=== PATIENT | male | born 1990 | race American Indian/Alaskan Native ===

== ENCOUNTER 2017-07-25 13:05 | Emergency (ER) | payer BC, OTHER ==
[2017-07-25 13:20] VITALS: BMI 27.2
[2017-07-25 13:22] VITALS: BP 122/78; PULSE 83; RESP 19; TEMP 98; O2SAT 100
[2017-07-25] MEDS ORDERED: cefTRIAXone (Rocephin) 250 mg Inj IM STA (13:54)
[2017-07-25] MEDS ORDERED: Lidocaine 1% Inj (20ml) ONE (14:01)
[2017-07-25 14:09] LABS: URINE BILIRUBIN NEGATIVE (NEGATIVE); URINE BLOOD NEGATIVE (NEGATIVE); URINE GLUCOSE (UA) NEGATIVE (NEGATIVE); URINE KETONE NEGATIVE (NEGATIVE); URINE LEUKOCYTE ESTERASE NEGATIVE Leu/uL (NEGATIVE); URINE PROTEIN NEGATIVE mg/dL (<30 mg/dL)
--- NOTE | 2017-07-25 14:09 | ED PDOC ---
Arrival/HPI - General Chief Complaint: Male Genitourinary Time Seen by Provider: 07/25/17 13:39 Historian: Patient - History of Present Illness Narrative History of Present Illness (Text): 07/25/17 17:31 26 yo M c/o white d/c since this AM, he was told this AM by his ex-girlfriend that she was Dx and Tx for gonorrhea and trichomonas. Denies any fever, chills, abdominal pain, N/V, back pain, dysuria, rash. Has no additional complaints. Past Medical History - Provider Review Nursing Documentation Reviewed: Yes - Infectious Disease Hx of Infectious Diseases: None - Psychiatric Hx Substance Use: No - Anesthesia Hx Anesthesia: No Family/Social History - Physician Review Nursing Documentation Reviewed: Yes Family/Social History: Unknown Family HX Smoking Status: Heavy Smoker > 10 Cigarettes Daily Hx Alcohol Use: Yes Frequency of alcohol use: Socially Hx Substance Use: No Allergies/Home Meds Allergies/Adverse Reactions: Allergies No Known Allergies Allergy (Verified 07/25/17 13:20) Home Medications: Home Meds Medication Instructions Recorded Confirmed No Known Home Med 07/25/17 07/25/17 Review of Systems - Review of Systems Constitutional: Normal. absent: Fatigue, Weight Change, Fevers Gastrointestinal: Normal, Other (+white urethral d/c). absent: Abdominal Pain, Constipation, Diarrhea, Vomiting Genitourinary Male: Normal, Other. absent: Dysuria, Frequency, Hematuria Musculoskeletal: Normal. absent: Arthralgias, Back Pain, Neck Pain Skin: Normal. absent: Rash, Pruritis, Skin Lesions Physical Exam Vital Signs Reviewed: Yes Vital Signs Temp Pulse Resp BP Pulse Ox 07/25/17 13:21 98.0 F 83 19 122/78 100 Temperature: Afebrile Blood Pressure: Normal Pulse: Regular Respiratory Rate: Normal Appearance: Positive for: Well-Appearing, Non-Toxic, Comfortable Pain Distress: None Mental Status: Positive for: Alert and Oriented X 3 - Systems Exam Neck: Present: Normal Range of Motion Respiratory/Chest: Present: Clear to Auscultation, Good Air Exchange. No: Respiratory Distress, Accessory Muscle Use, Wheezes, Rales, Rhonchi Cardiovascular: Present: Regular Rate and Rhythm, Normal S1, S2. No: Murmurs Abdomen: No: Tenderness, Rebound, Guarding Genitourinary Male: Present: Other (patient deferred) Back: Present: Normal Inspection. No: CVA Tenderness Upper Extremity: Present: Normal Inspection, Normal ROM Lower Extremity: Present: Normal Inspection, Normal ROM Neurological: Present: GCS=15, CN II-XII Intact Skin: Present: Warm, Dry, Normal Color. No: Rashes Medical Decision Making ED Course and Treatment: 07/25/17 17:34 26 yo M c/o white d/c since this AM, he was told this AM by his ex-girlfriend that she was Dx and Tx for gonorrhea and trichomonas. Plan : - UA - Urine cx - rocephin 250 mg IM - zithromax 1 g PO - flagyl 2g PO - Chlamydia and gonorrhea cx Patient was prophylactically treated for gonorrhea, chlamydia and trichomonas due to his recent exposure. Patient informed that he will be notified via phone call for any (+) results. Otherwise instructed to f/u with pmd or referral provided. Advised to refrain from any sexual activity for at least 2 week to ensure resolution of infection and instructed to have any recent partners notified so that they can seek testing and treatment. - Lab Interpretations Lab Results: Lab Results 07/25/17 13:58: Urine Color Yellow, Urine Appearance Clear, Urine pH 6.0, Ur Specific [place] 1.015, Urine Protein Negative, Urine Glucose (UA) Negative, Urine Ketones Negative, Urine Blood Negative, Urine Nitrate Negative, Urine Bilirubin Negative, Urine Urobilinogen 1.0 H, Ur Leukocyte Esterase Negative - Medication Orders Current Medication Orders: Discontinued Medications Azithromycin (Zithromax) 1,000 mg PO STAT STA PRN Reason: Protocol Stop: 07/25/17 13:55 Last Admin: 07/25/17 14:01 Dose: 1,000 mg Ceftriaxone Sodium (Rocephin) 250 mg IM STAT STA PRN Reason: Protocol Stop: 07/25/17 13:55 Last Admin: 07/25/17 14:02 Dose: 250 mg IM Administration Charges Document 07/25/17 14:02 GMD (Rec: 07/25/17 14:02 GMD [facility] [place] [facility] [place]-[id number]) Injection Site MAR Injection Site Left Deltoid Charges for Administration # of IM Administrations 1 Metronidazole (Flagyl) 2,000 mg PO STAT STA PRN Reason: Protocol Stop: 07/25/17 14:06 Last Admin: 07/25/17 14:12 Dose: 2,000 mg - PA / BUFFERER / Resident Statement /DO has reviewed & agrees with the documentation as recorded. Disposition/Present on Arrival - Present on Arrival Any Indicators Present on Arrival: No History of DVT/PE: No History of Uncontrolled Diabetes: No Urinary Catheter: No History of Decub. Ulcer: No History Surgical Site Infection Following: None - Disposition Have Diagnosis and Disposition been Completed?: Yes Diagnosis: Urethritis Disposition: HOME/ ROUTINE Disposition Time: 14:07 Patient Plan: Discharge Condition: STABLE Discharge Instructions (ExitCare): Gonorrhea (ED), Nonspecific Urethritis in Men (ED) Print Language: GEORGI[place] Additional Instructions: Thank you for letting us take care of you today. You were treated for urethritis. The emergency medical care you received today was directed at your acute symptoms. It may take several days for your symptoms to resolve. Return to the Emergency Department if your symptoms worsen, do not improve, or if you have any other problems. Please contact your doctor in 2 days for re-evaluation and follow up / or call one of the physicians/clinics you have been referred to that are listed on the Patient Visit Information form that is included in your discharge packet. Bring any paperwork you were given at discharge with you along with any medications you are taking to your follow up visit. Our treatment cannot replace ongoing medical care by a primary care provider (PCP) outside of the emergency department. Thank you for allowing the [facility] team to be part of your care today. If you had a urine culture: It will take several days for the results, if any change in treatment is needed we will contact you. Referrals: Meng Simpson MD [Staff Provider] - Follow up with primary Forms: [facility] (Georgian)
[2017-07-25 14:12] LABS: URINE APPEARANCE CLEAR (CLEAR); URINE COLOR YELLOW (YELLOW)
== END 2017-07-25 14:44 | disposition home or self-care (01) ==
LOC: ED 13:05
DX: N34.2 Other urethritis (principal); F17.210 Nicotine dependence, cigarettes, uncomplicated
CPT/HCPCS: 81003; 87086; 96372; 99284; J0696